=== PATIENT | female | born 1940 | race Caucasian/White ===

== ENCOUNTER → 2023-06-14 13:17 | Outpatient (REF) | payer MEDICARE, SELFPAY ==
[2023-06-14 14:47] LABS: Urine Albumin 2+ (Neg - Trace); Urine Bilirubin Negative (Negative); Urine Character Very Cloudy (Clear); Urine Color Yellow; Urine Glucose Negative (Negative); Urine Ketone Negative (Negative); Urine Leukocyte 2+ (Negative); Urine Nitrite Negative (Negative); Urine Occult Blood 2+ (Negative); Urine Specific Gravity 1.015 (<1.030); Urine Urobilinogen Negative (Neg - 1+)
[2023-06-14 15:10] LABS: Urine Bacteria Many (Negative)
== END ==
LOC: OLABPG 13:17
PROVIDERS: ATTENDING PHYSICIAN Student in an Organized Health Care Education/Training Program
DX: N39.0 Urinary tract infection, site not specified (principal)
CPT/HCPCS: 81003; 81015; 87077; 87086; 87186

== ENCOUNTER → 2023-08-29 11:40 | Outpatient (REF) | payer MEDICARE, SELFPAY ==
[2023-08-29 15:20] LABS: Urine Albumin Trace (Neg - Trace); Urine Bilirubin Negative (Negative); Urine Character Clear (Clear); Urine Color Yellow; Urine Glucose Negative (Negative); Urine Ketone Negative (Negative); Urine Leukocyte 2+ (Negative); Urine Nitrite Positive (Negative); Urine Occult Blood Negative (Negative); Urine Urobilinogen Negative (Neg - 1+)
[2023-08-29 15:35] LABS: Urine Squamous Cell 0-2 /LPF (Few)
[2023-08-29 15:36] LABS: Urine Bacteria Many (Negative); Urine Red Blood Cell None Seen /HPF (0-2); Urine White Cell >100 /HPF (0-5); Urine White Cell Cast 0-2 /LPF
== END ==
LOC: OLABPG 11:40
PROVIDERS: ATTENDING PHYSICIAN Family Medicine
DX: F03.90 Unspecified dementia, unspecified severity, without behavioral disturbance, psychotic disturbance, mood disturbance, and anxiety (principal)
CPT/HCPCS: 81003; 81015; 87077; 87086; 87186

== ENCOUNTER → 2024-08-26 09:03 | Outpatient (REF) | payer MEDICARE, SELFPAY ==
[2024-08-26 10:25] LABS: % Basophils 0.6 % (0-2); % Eosinophils 3.5 % (0-6); % Immature Granulocytes 0.2 % (0-0.5); % Lymphocytes 41.8 % (20.5-51.1); % Monocytes 9.6 % (1.7-9.3); % Neutrophils 44.3 % (42.2-75.2); Absolute Basophils 0.1 10^3/uL (0-0.2); Absolute Eosinophils 0.4 10^3/uL (0-0.7); Absolute Lymphocytes 4.2 10^3/uL (1.2-3.4); Absolute Neutrophils 4.5 10^3/uL (1.4-6.5); Hematocrit 41.7 % (37.0-47.0); Hemoglobin 14.8 g/dL (12.0-16.0); Mean Corp Hgb Conc. 35.5 g/dL (33.0-37.0); Mean Corpuscular Volume 93.1 fL (81.0-99.0); Nucleated Red Blood Cells % 0 %; Platelet Count 243 10^3/uL (130-400); Red Blood Cell Count 4.48 10^6/uL (4.20-5.40); Red Cell Dist. Width 13.1 % (11.5-14.5); White Blood Cell Count 10.1 10^3/uL (4.8-10.8)
[2024-08-26 10:26] LABS: ALT (SGPT) 20 U/L (0-35); AST (SGOT) 22 U/L (14-36); Albumin 4.3 g/dl (3.5-5.0); Alkaline Phosphatase 72 U/L (38-126); Blood Urea Nitrogen 19 mg/dl (7-17); Calcium 9.7 mg/dl (8.4-10.2); Carbon Dioxide 26 mmol/L (22-30); Chloride 104 mmol/L (98-107); Glucose 120 mg/dl (70-99); HDL Cholesterol 45 mg/dl; LDL Cholesterol, Calculated 113 mg/dl; Potassium 4.5 mmol/L (3.5-5.1); Sodium 142 mmol/L (135-145); Total Bilirubin 1.1 mg/dl (0.2-1.3); Total Cholesterol 181 mg/dl (50-199); Total Protein 7.3 g/dl (6.3-8.2); Triglyceride 119 mg/dl (10-149); Very Low Density Lipoprotein 23 mg/dl (0-30); eGFR > 60.00
[2024-08-26 13:06] LABS: Vitamin D, 25-OH*** 27.1 ng/mL (30-80)
[2024-08-26 13:16] LABS: TSH Reflex To Free T4 1.63 uIU/ml (0.47-4.68)
[2024-08-26 13:56] LABS: Folate 6.6 ng/ml (2.76-20); Vitamin B12 951 pg/ml (239-931)
== END ==
LOC: OLABPG 09:03
PROVIDERS: ATTENDING PHYSICIAN Nurse Practitioner Gerontology
DX: D64.9 Anemia, unspecified (principal); D51.9 Vitamin B12 deficiency anemia, unspecified; F03.90 Unspecified dementia, unspecified severity, without behavioral disturbance, psychotic disturbance, mood disturbance, and anxiety; R53.1 Weakness
CPT/HCPCS: 36415; 80053; 80061; 82306; 82607; 82746; 84443; 85025

== ENCOUNTER 2024-10-13 00:55 | Inpatient (IN) | payer MEDICARE, SELFPAY ==
[2024-10-12 22:30] VITALS: BP 164/52
[2024-10-12 22:32] VITALS: BP 164/52
[2024-10-12 22:36] VITALS: BMI 30.8
[2024-10-12 23:01] VITALS: BP 132/59
--- NOTE | 2024-10-12 23:01 | ED.GENMED ---
History of Present Illness
General
Chief Complaint: Chest Pain
Source: patient, family, ambulance crew and assisted
Exam Limitations: dementia
Time Seen by Provider: 10/12/24 22:47
Nursing documentation reviewed up to this point in time: agreed with
History of Present Illness
History of Present Illness:
Pleasantly demented 84-year-old female presents to the emergency department from the [facility] with possible chest pain. She states that the chest pain began weeks ago, the report from the assisted to the son states that the
chest pain began today. Patient's son states that he visited with her several days ago and there was no complaint of chest pain. Upon arrival, patient states that she had chest pain that did not radiate. Patient is not on any blood thinners.
Patient does have a history of coronary artery disease with an RCA stent. She does have frequent UTIs. She suffers from hypertension and hyperlipidemia.
Past History
Past History
ED Past Medical History: CAD, Other (Chronic back pain) and Other (djd)
ED Past Surgical History: Cardiac and Orthopedic
Social History
Tobacco: Non-smoker
Alcohol: None
Personal:
Living: alone
Review of Systems
Review of Systems
Allergies reviewed?: Yes
Unable to obtain full review of systems at this time due to: dementia
Other source history: family
All Other Systems: ROS reviewed and negative except as documented in HPI and ROS
Constitutional: Reports no symptoms
EENT: Reports no symptoms
Respiratory: Reports no symptoms
Cardiac: Reports chest pain
ABD/GI: Reports no symptoms
: Reports no symptoms
Musculoskeletal: Reports no symptoms
Skin: Reports no symptoms
Neurological: Reports no symptoms
Endocrine: Reports no symptoms
Hematologic/Lymphatic: Reports no symptoms
Psychiatric: Reports anxiety
Phy Exam
General Physical Exam
General Presentation: well appearing and no apparent distress
General age: appears stated age
General Skin: warm
General Mental: alert and usual mental status
General Hydration: appears well hydrated
Cardiovascular Exam
Cardiovascular Exam: regular rate/rhythm, no edema and no murmur
Neurological Exam
Neurological Exam: alert and confused (Baseline medical status)
Musculoskeletal Exam
Musculoskeletal Exam: full ROM, no edema and neuro vasc intact
Skin Exam
Skin Exam: normal color and warm/dry
Scores
Heart Score for Chest Pain Patients
STEMI patient?: No
History: Slightly or Non-Suspicious
ECG: Nonspecific Repolarization
Age: >/= 65 years
Risk Factors: >/= 3 Risk Factors or History of CAD
Troponin: >/= 3 x Normal Limit
Heart Score for Chest Pain Patients: 7
Heart Score Risk: 72.7 % MACE over next 6 weeks
Course
Orders/Labs/Results
Orders:
Orders
10/12/24 22:29
Electrocardiogram (*1) Urgent
Reason for Study: Chest Pain
Cardiac Monitoring- Treatment ONCE
EKG- Treatment ONCE
IV Insert/Care/Rem.- Treatment PRN
O2 Therapy [RESP] Urgent
Titrate/Wean O2 to maintain O2 sat greater than (%): 90
Special Instructions: Maintain sats >/=90%
Pulse Ox/spot Check [RESP] Urgent
Quantity: 1
Special Instructions: ON ROOM AIR
10/12/24 22:55
Complete Blood Count/With Diff Urgent
Comprehensive Metabolic Panel Urgent
Troponin I Urgent
Abnormal Lab Results
10/12/24
22:55
MCH 32.8 H pg
(27.0-31.0)
MPV 10.6 H fL
(7.4-10.4)
Absolute Monos (auto) 1.0 H 10^3/uL
(0.1-0.6)
Monocytes % 9.6 H %
(1.7-9.3)
Carbon Dioxide 31 H mmol/L
(22-30)
BUN 19 H mg/dl
(7-17)
Glucose 176 H mg/dl
(70-99)
Troponin I 0.486 H* ng/ml
10/12/24 22:55
10/12/24 22:55
Vital Signs
Initial and Last Documented VS:
Initial Vital Signs
Temp Pulse Resp BP Pulse Ox
98.5 F 77 21 164/52 97
10/12/24 22:30 10/12/24 22:30 10/12/24 22:30 10/12/24 22:30 10/12/24 22:30
Last Documented Vital Signs
Temp Pulse Resp BP Pulse Ox
98.5 F 74 17 164/52 98
10/12/24 22:30 10/12/24 22:32 10/12/24 22:32 10/12/24 22:32 10/12/24 23:00
*EKG
Interpreted by ED Provider?: Yes
Heart Rate: 78
Rate: normal
Rhythm: sinus
Oxford: left axis deviation
Interval: normal interval
QRS Pattern: right bundle branch block
Ischemia: non-specific ST changes
*Wire Twister Interpretation
Rate: normal
Interpretation: normal
Heart Rate: 82
*Critical Care Note
Total Time (30-74mins, 75-104mins- exclusive of procedures): 35 (Critical care statement: A total of 35 minutes of critical care time was provided for this patient. This time is separate from time utilized to perform the aforementioned documented
procedures. Aggregate critical care time includes only time during which I was engaged in work directl)
Update Note
Update Note:
Spoke with son Andre who is aware of the elevated troponin. Patient is a DNR which he confirmed.
ED Attending Note
-
Portions of this chart may have been created with voice recognition software.� Occasional wrong word or��sound alike� substitutions may have occurred due to the inherent limitations of voice recognition software.
Discharge Plan
Departure
Patient Disposition: Admit
Date of Disposition: 10/13/24
Time of Disposition: 00:04
Admit to: IVU
Presentation/result/management discussed w/ accepting MD/DO: Hospitalist
Patient with high blood pressure during this ER visit?: Yes
Condition: Fair
Discharge Problem:
Non-ST elevation (NSTEMI) myocardial infarction, DNR (do not resuscitate)
Prescriptions:
No Action
carvedilol 3.125 MG tablet
3.125 mg PO BID Qty: 60 3RF
lisinopril 5 MG tablet
5 mg PO DAILY Qty: 90 3RF
cefuroxime axetil 500 MG tablet
500 mg PO BID Qty: 14 0RF
Referrals:
Bel Diaz CRNP [Family Provider] -
Interventions
Interventions:
*Risk Screen - Suicide Last Done: 10/12/24 22:44
*General Assessment Last Done: 10/12/24 22:44
*Neglect/Abuse Screening Last Done: 10/12/24 22:50
*ED- Fall Risk Assessment Last Done: 10/12/24 22:44
*ED COVID-19 Vaccine History Last Done: 10/12/24 22:44
ED- Cardiac Assessment Last Done: 10/12/24 22:44
Discharge Date and Time
Print Language: BELARUSIAN
[2024-10-12 23:04] LABS: % Basophils 0.5 % (0-2); % Eosinophils 2.5 % (0-6); % Immature Granulocytes 0.4 % (0-0.5); % Lymphocytes 28.5 % (20.5-51.1); % Monocytes 9.6 % (1.7-9.3); % Neutrophils 58.5 % (42.2-75.2); Absolute Basophils 0.1 10^3/uL (0-0.2); Absolute Eosinophils 0.3 10^3/uL (0-0.7); Absolute Lymphocytes 2.9 10^3/uL (1.2-3.4); Hematocrit 40.6 % (37.0-47.0); Hemoglobin 14.5 g/dL (12.0-16.0); Mean Corp Hgb Conc. 35.7 g/dL (33.0-37.0); Mean Corpuscular Hgb 32.8 pg (27.0-31.0); Mean Corpuscular Volume 91.9 fL (81.0-99.0); Mean Platelet Volume 10.6 fL (7.4-10.4); Nucleated Red Blood Cells % 0 %; Platelet Count 210 10^3/uL (130-400); Red Blood Cell Count 4.42 10^6/uL (4.20-5.40); Red Cell Dist. Width 12.9 % (11.5-14.5); White Blood Cell Count 10.2 10^3/uL (4.8-10.8)
[2024-10-12 23:17] LABS: ALT (SGPT) 18 U/L (0-35); AST (SGOT) 19 U/L (14-36); Albumin 4.5 g/dl (3.5-5.0); Alkaline Phosphatase 79 U/L (38-126); Blood Urea Nitrogen 19 mg/dl (7-17); Calcium 9.6 mg/dl (8.4-10.2); Carbon Dioxide 31 mmol/L (22-30); Chloride 102 mmol/L (98-107); Estimated Creatinine Clearance 64 ml/min; Glucose 176 mg/dl (70-99); Sodium 140 mmol/L (135-145); Total Bilirubin 0.7 mg/dl (0.2-1.3); Total Protein 7.6 g/dl (6.3-8.2); eGFR > 60.00
[2024-10-13] VITALS (8 sets, daily range): BP systolic 133–158; BP diastolic 60–84; BMI 31.2
[2024-10-13] LABS: Troponin I 0.486 ng/ml
--- NOTE | 2024-10-13 00:21 | HPS.HSE ---
Family Physician
-
Family Physician: LESLYE Eid
Chief Complaint
-
Chest pain
History of Present Illness
This is a 84-year-old female with past medical history of CAD status post stenting with PCI to the RCA, advanced dementia currently living at the [facility] who presents to the emergency department with acute onset of chest pain.
Patient is a poor historian. By the time I visited she says she is not having any chest pain. At the [facility] called the patient's son about 30 minutes prior to arrival in the emergency department to indicate that she was having chest pain
and she will be transferred to the ED. She cannot describe the extent of her pain, it is radiation or any associated symptoms such as shortness of breath palpitations diaphoresis nausea or vomiting. She is currently in no distress and denies any
complaints.
In the emergency department she was afebrile, blood pressure was 160/52 with a pulse of 74 satting 95% on room air.
ECG shows normal sinus rhythm and no acute ischemic changes. Troponin was elevated at 0.48. CBC was unremarkable stop electrolytes BUN/creatinine were in the normal range.
Medical History
Past Medical History
Past Medical History: Reports Other
Additional Past Medical History:
CAD status post NSTEMI with PCI to the RCA,
Hypertension
Hyperlipidemia
Anxiety
Dementia
Past Surgical History: Reports Other
Additional Past Surgical History:
Breast biopsy
Tonsillectomy
Left hip replacement
Total abdominal hysterectomy and bilateral salpingo-oophorectomy
Social History
Tobacco: Non-smoker
Alcohol: None
Drug: None
Employment: Retired
Family History
Family History: Not pertinent
Allergies / Home Medications
Allergies reflects when Allergies were last updated in [facility].
Home Medications with original date entered in [facility]
Allergy/Medication List:
Allergies
Allergy/AdvReac Type Severity Reaction Status Date / Time
No Known Allergies Allergy Verified 10/12/24 22:57
Home Medications
carvedilol 3.125 mg tablet 3.125 mg PO BID ##60 02/15/16
lisinopril 5 mg tablet 5 mg PO DAILY ##90 02/15/16
cefuroxime axetil 500 mg tablet 500 mg PO BID #14 tabs 04/04/21
Review of Systems
-
Unable to obtain full review of systems at this time due to: Dementia
Physical Exam
Vital Signs
Vital Signs
Temp Pulse Resp BP Pulse Ox
98.5 F 74 17 164/52 98
10/12/24 22:30 10/12/24 22:32 10/12/24 22:32 10/12/24 22:32 10/12/24 23:00
Physical Exam
General: Well Developed, Well Nourished and No Apparent Distress
HEENT: NormoCephalic, Moist mucous membranes and Atraumatic
Respiratory: Clear
Cardiac: S1/S2 and Regular Rhythm; No Murmur or Rub
GI: Soft, Non Tender, Non Distended and Normal Bowel Sounds; No Organomegaly
Rectal: Deferred by Provider
Musculoskeletal: No Clubbing, No Cyanosis and No Edema
Skin: No Rash
Neuro: Nonfocal/grossly intact
Laboratory Results
-
10/12/24 22:55
10/12/24 22:55
Laboratory Results
Total Bilirubin 0.7 mg/dl (0.2-1.3) 10/12/24 22:55
AST 19 U/L (14-36) 10/12/24 22:55
ALT 18 U/L (0-35) 10/12/24 22:55
Alkaline Phosphatase 79 U/L (38-126) 10/12/24 22:55
Troponin I 0.486 ng/ml H* 10/12/24 22:55
Data Reviewed
-
Medical Tests (Nuc Med, Echo, EKG etc): Image Personally Visualized and interpreted
Lab Data: Labs Reviewed by me
Old Records: Reviewed
Impression/Plan
-
IMPRESSION:
Atrial female with dementia and history of coronary disease status post prior stenting presents to the emergency department with episode of chest pain now resolved. She is currently chest pain-free. Found to have no ischemia on ECG but elevated
troponin to 0.48 consistent with an NSTEMI. Labs are otherwise stable. Patient in no acute distress.
PLAN:
NSTEMI -troponin 0.48, currently chest pain-free
-Admit to telemetry
-Aspirin 324 x 1
-Heparin drip
-Nitroglycerin as needed chest pain
-Antiemetics
-Patient is hemodynamically stable and not on a beta-lisa currently, will monitor for now
-Continue amlodipine and Dyazide
-Check lipid panel in the morning
-Echo
-N.p.o. after midnight, cardiology consult
DVT prophylaxis�on heparin drip
CODE STATUS�DNR
[2024-10-13] MEDS: HEPARIN 4000 UNITS IV (00:27)
[2024-10-13] MEDS: HEPARIN 25000 UNITS/250 ML IV (00:33)
[2024-10-13] MEDS: FLUSH (NSS) 1 FLUSH IV (00:39)
[2024-10-13] MEDS: LOW STRENGTH ASPIRIN 324 MG PO (00:42)
[2024-10-13 01:05] LABS: APTT 28.7 Sec (23.4-35.0)
[2024-10-13 02:40] LABS: Troponin I 0.595 ng/ml
[2024-10-13 07:39] LABS: APTT 72.5 Sec (23.4-35.0)
[2024-10-13 07:50] LABS: Troponin I 0.559 ng/ml
[2024-10-13 08:01] LABS: Blood Urea Nitrogen 16 mg/dl (7-17); Calcium 9.3 mg/dl (8.4-10.2); Carbon Dioxide 28 mmol/L (22-30); Chloride 107 mmol/L (98-107); Estimated Creatinine Clearance 72 ml/min; Glucose 135 mg/dl (70-99); HDL Cholesterol 42 mg/dl; LDL Cholesterol, Calculated 78 mg/dl; Potassium 4.1 mmol/L (3.5-5.1); Sodium 142 mmol/L (135-145); Total Cholesterol 146 mg/dl (50-199); Triglyceride 133 mg/dl (10-149); Very Low Density Lipoprotein 26 mg/dl (0-30); eGFR > 60.00
[2024-10-13] MEDS: NORVASC 5 MG PO (08:06)
[2024-10-13] MEDS: ORETIC 25 MG PO (08:06)
[2024-10-13] MEDS: RISPERDAL 0.5 MG PO ×2 (08:06→21:02)
--- NOTE | 2024-10-13 08:21 | W.PN.HOSP.TC ---
Today's Communication/Plan
-
Continue with heparin drip
Continue with aspirin and statin
Consider beta-lisa and ACEi depending on hemodynamics
Monitor on telemetry
No plan for [facility]
Assessment / Plan
Assessment / Plan
#NSTEMI
#CAD s/p PCI to RCA
#Dyslipidemia
-Presented with chest pain that resolved prior to admission; troponin peak near 6.3 with anterolateral T wave flattening and ST depression
-Does have high pretest probability due to previous obstructive CAD requiring RCA stent; A1c 5.9%, LDL 76
-Chest pain resolved shortly after arrival; was started on moderate intensity statin and heparin drip
-Discussed with cardiology, no plans for [facility], will continue with medical management
-Has remained hemodynamically stable and on room air
Plan
-Continue with moderate intensity statin and LDL goal <70
-Continue with heparin drip and daily baby aspirin
-Consider beta-lisa if heart rate >90
-Repeat ECG and troponin for new anginal equivalent
-Check echocardiogram
-Monitor on telemetry
#Primary hypertension
-Home regimen includes amlodipine and hydrochlorothiazide
-No known history of hypertensive systemic disease
-Most recent BP 141/72 mmHg
-Consider ACEi if BP worsens
#Dementia
-Likely Alzheimer's
-Not currently on medication
-Severe per history, and on exam
Diet: Low-cholesterol
DVT prophylaxis: Heparin
CODE STATUS: DNR
Anticipated Discharge: 24 - 48 hours
Subjective/Interval History
-
Date of Service: October 13, 2024
Seen and examined at bedside. No acute events reported overnight. AFVSS, no events on telemetry
Troponin peaked at 0.63 then down trended. Patient remains without chest pain or anginal equivalents this morning
Denies new complaints though ROS limited by dementia
Objective Data
-
Labs:
Laboratory Results
10/12/24 10/13/24 10/13/24
22:55 00:17 07:07
WBC 10.2
Hgb 14.5
Hct 40.6
Plt Count 210
APTT 28.7 72.5 H
Sodium 140 142
Potassium 4.0 4.1
Chloride 102 107
Carbon Dioxide 31 H 28
BUN 19 H 16
Creatinine 0.7 0.6
Glucose 176 H 135 H
Calcium 9.6 9.3
Total Bilirubin 0.7
AST 19
ALT 18
Alkaline Phosphatase 79
10/13/24
13:50
WBC
Hgb
Hct
Plt Count
APTT Pending
Sodium
Potassium
Chloride
Carbon Dioxide
BUN
Creatinine
Glucose
Calcium
Total Bilirubin
AST
ALT
Alkaline Phosphatase
Vital Signs:
Vital Signs
Temp Pulse Resp BP Pulse Ox
98 F 66 18 158/83 98
10/13/24 07:56 10/13/24 08:06 10/13/24 07:56 10/13/24 08:06 10/13/24 07:56
I&O
10/12/24 10/13/24 10/14/24
06:59 06:59 06:59
Intake Total 40 / 40
Balance 40 / 40
Review of Systems
-
Unable to obtain full review of systems at this time due to: Dementia
Physical Exam
-
General: Well Developed, No Apparent Distress, Comfortable and Obese
HEENT: Normocephalic, Atraumatic, Moist Mucous Membranes and Anicteric
Respiratory: Clear to Auscultation and Non Labored Respirations; Negative Accessory Resp Muscle Use
Cardiac: Regular Rhythm and S1/S2; Negative Murmur, Rub, JVD or Gallop
GI: Soft, Nontender, Nondistended and Normal Bowel Sounds
Musculoskeletal: No Clubbing, No Cyanosis and No Edema
Skin: Warm, Dry and Normal Turgor; Negative Rash
Neuro: AO x 3, Nonfocal/Grossly Intact and Central Nerve's Intact
Psych: Calm
Data Reviewed
-
Labs: Labs Reviewed by me, Discussed with Physician (Missionary Coordinator) and Discussed with Patient
--- NOTE | 2024-10-13 09:02 | CON.CAR ---
Addendum entered and electronically signed by George Olson MD 10/13/24 19:17:
I called and spoke with son, following up on WE's call
Addendum entered and electronically signed by George Olson MD 10/13/24 19:12:
84-year-old woman sent from [facility] [place] yesterday with chest discomfort and found to have troponin of 0.63.
PMH: CAD with non-ST segment elevation MA, 3 mm resolute stent to mid RCA in 2016, dementia, hyperlipidemia, hypertension
PSH: Hysterectomy with BSO and tonsillectomy
SH: Former smoker no alcohol, lives in [facility]
Family history: Noncontributory
Rest of history as below
Pleasant, confused, 141/72, pulse 71, respiratory rate 18, weight is 79.9 kg, head neck exam unremarkable, lungs are clear, soft systolic murmur, JVD okay, regular rate and rhythm, abdomen benign, trace edema,
ECG: Sinus rhythm, right bundle branch block, prior inferior myocardial infarction
Hemoglobin 14.5, BUN and creatinine are 16 and 0.6, potassium is 4.1, peak troponin is 0.630, total cholesterol is 146 with an LDL of 78
Impression:
Admitted with chest pain and elevated troponin 10/12/2024
NSTEMI, peak troponin 0.63
CAD
NSTEMI and 3 mm resolute KELVIN to the mid RCA 02/12/2016HTN
Plan:
She presents with a non-ST segment elevation MA. Given her current asymptomatic status along with her comorbidities, best option is conservative management with optimization of GDMT. Aspirin has been reinitiated. Clopidogrel has been added.
Carvedilol has been restarted.Would stop heparin, continue atorvastatin, and consider SARITA inhibitor if needed.
Recent echocardiogram was satisfactory.
We will continue to follow.
Original Note:
Consultation
Consultation Request
Date/Time Consultation Requested: 10/13/2024 ay 0159
Date/Time Consultation Performed: 10/13/2024 at 0930
Requesting Provider: Dr. Caceres
Performing Provider: Dr. JU Olson
Reason for Consultation: Chest pain, elevated Troponin
Medical History
-
History of Present Illness:
Patient was sent from the memory care unit at [facility] yesterday to the ER with complaints of chest pain and was admitted with elevated troponin and cardiology has been consulted for possible NSTEMI. Patient lives at the memory care unit at [facility] and has dementia, she does not remember having any chest pain yesterday and has no idea why she is here in the hospital. I did call the patient's son and we talked by phone for 10 minutes and 31 seconds. Patient's son got a call from nursing
at the [facility] care unit yesterday that the patient was complaining of chest pain and he met the patient in the ER. In the ER the patient was complaining of chest pain that was mostly left-sided, but she is pain-free now. Patient was given aspirin
and was started on heparin gtt. I reviewed the patient's med list with her son and also by looking in her [facility] records, it does not look like she was taking aspirin. The patient's son cannot remember why aspirin may have been stopped and does not
recall any interactions. There are no allergies listed in her [facility] or [employer] records. Patient also with history of HTN was previously on Coreg and lisinopril, but they have both been stopped the most recently her regimen is amlodipine and HCTZ.
Patient also no longer taking statin for unclear reasons.
PMH:
CAD
NSTEMI and 3 mm resolute KELVIN to the mid RCA 02/12/2016
HTN
Past Medical History
Past Medical History: Other (in HPI)
Past Surgical History: Cardiac (RCA PCI 2015), Gynecological (hysterectomy, BSO) and Tonsilectomy
Social History
Tobacco: Former Smoker
Alcohol: None
Drug: None
Living: Other (memory care unit at [facility])
Family History
Family History: CAD and Diabetes
Allergies / Home Medications
Allergy/AdvReac Type Severity Reaction Status Date / Time
No Known Allergies Allergy Verified 10/12/24 22:57
�Medication �Instructions �Recorded �Confirmed �Type
carvedilol 3.125 mg tablet 3.125 mg PO BID ##60 02/15/16 04/04/21 Rx
lisinopril 5 mg tablet 5 mg PO DAILY ##90 02/15/16 04/04/21 Rx
cefuroxime axetil 500 mg tablet 500 mg PO BID #14 tabs 04/04/21 Rx
The above medication list is wrong, I have reconciled medications with the patient's son by phone:
Amlodipine 5 mg daily, HCTZ 25 mg daily, hydroxyzine 5 mg twice daily and at bedtime, Remeron 30 mg at bedtime, Risperdal 0.25 mg twice daily
Review of Systems
-
History Source: Patient and Family (Son)
All other systems: Negative unless noted
Physical Exam
Vital Signs
Temp Pulse Resp BP Pulse Ox
98 F 66 18 158/83 98
10/13/24 07:56 10/13/24 08:06 10/13/24 07:56 10/13/24 08:06 10/13/24 07:56
GEN: NAD. ORANTES to self, does not know why she is in the hospital
HEENT: EOMI
LUNGS: RA. CTA B/L, no wheeze
CV: SR on tele. Reg, S1/S2, no murmur
ABD: soft, BS+, NT, ND
EXT: No clubbing, cyanosis, lesions or edema B/L
NEURO: Gross non-focal
SKIN: Warm, dry and pink. No rash
Lab Results
10/12/24 22:55
10/13/24 07:07
Troponin I 0.559 ng/ml H* 10/13/24 07:07
Impression / Plan
-
PCP: Dr. Pitts
Card: [facility] cardiology, [facility]
Impression:
Admitted with chest pain and elevated troponin 10/12/2024
NSTEMI, peak troponin 0.63
CAD
NSTEMI and 3 mm resolute KELVIN to the mid RCA 02/12/2016
HTN
Echo 10/05/2024: EF 55 to 60%, normal RV size and function, trace MR, mild to moderate aortic regurgitation, no pericardial effusion
Plan:
-Patient was sent from the memory care unit at [facility] yesterday to the ER with complaints of chest pain and was admitted with elevated troponin and cardiology has been consulted for possible NSTEMI. Patient lives at the memory care unit at [place]
[facility] and has dementia, she does not remember having any chest pain yesterday and has no idea why she is here in the hospital. I did call the patient's son and we talked by phone for 10 minutes and 31 seconds. Patient's son got a call from nursing
at the memory care unit yesterday that the patient was complaining of chest pain and he met the patient in the ER. In the ER the patient was complaining of chest pain that was mostly left-sided, but she is pain-free now. Patient was given aspirin
and was started on heparin gtt. I reviewed the patient's med list with her son and also by looking in her [facility] records, it does not look like she was taking aspirin. The patient's son cannot remember why aspirin may have been stopped and does not
recall any interactions. There are no allergies listed in her [facility] or [employer] records. Patient also with history of HTN was previously on Coreg and lisinopril, but they have both been stopped the most recently her regimen is amlodipine and HCTZ.
Patient also no longer taking statin for unclear reasons.
-ECG reviewed by me is SR with RBBB
-Peak troponin 0.63 in the setting of chest pain, but no ECG changes and no WMA by echo. Will manage as possible NSTEMI. Heparin drip until tomorrow.
-Start Plavix 75 mg daily today, orders placed by me
-Patient was not taking an aspirin a day prior to admission for unclear reasons, she was aspirin loaded in the ER yesterday and I have ordered aspirin 81 mg daily starting today, orders placed by me.
-Patient previously tolerated Coreg and will start Coreg 3.125 mg BID today, orders placed by me
-Outpatient dose of amlodipine 5 mg daily has been continued.
Outpatient dose of HCTZ 25 mg daily has been continued there is no obvious contraindication so we will continue for now
-LDL 78, will start atorvastatin 40 mg daily. Patient previously tolerated atorvastatin 80 mg daily.
-EF preserved by echo noted above
-Talked with patient's son by phone for 10 minutes 31 seconds today and we reviewed the admission thus far. We talked about management options for the suspected NSTEMI. Patient is DNR lives in the dementia unit at [facility]. We agreed to proceed
with medical therapy.
-Patient is not a candidate for cardiac rehab given dementia.
[2024-10-13 09:08] LABS: Glycohemoglobin (HgbA1c) 5.9 % (4.0-5.6)
[2024-10-13] MEDS: LOW STRENGTH ASPIRIN 81 MG PO (10:02)
--- NOTE | 2024-10-13 15:55 | DOWNTIME ---
There was a [employer] Set Up Operator Downtime on 10/13/2024 from 1230 to 10/13/2024 at 1550. Downtime documentation of patient's care, including medication administrations, has been reconciled in the electronic record per guidelines. Refer to the
patient's paper chart under the miscellaneous tab to see printed paper medication records and downtime forms.
[2024-10-13 17:14] LABS: APTT 81.2 Sec (23.4-35.0)
[2024-10-13] MEDS: LIPITOR 40 MG PO (17:31)
[2024-10-13] MEDS: PLAVIX 75 MG PO (17:31)
--- NOTE | 2024-10-13 17:35 | CM ---
Met with patient to obtain information for assessment. Patient stated that she lives with her spouse in a two story home with two steps. Her spouse provides assistance with all of her ADLs, personal care, bathing, dressing and caddy/caddie supervisor,
cooking, cleaning and laundry. She has a walker. She has not had VN and did not have SNF.
Patient has a prescription plan and uses, [facility] for all of her medications.
Her PCP is, Bel Diaz.
Plan: Case management will continue to follow and assist with discharge planning. Will watch for needs.
[2024-10-13] MEDS: COREG 3.125 MG PO (21:02)
[2024-10-13] MEDS: REMERON 45 MG PO (21:02)
[2024-10-14 03:55] VITALS: BP 137/58
[2024-10-14 07:08] LABS: % Basophils 0.8 % (0-2); % Immature Granulocytes 0.4 % (0-0.5); % Lymphocytes 28.5 % (20.5-51.1); % Monocytes 10.9 % (1.7-9.3); % Neutrophils 56.4 % (42.2-75.2); Absolute Basophils 0.1 10^3/uL (0-0.2); Absolute Eosinophils 0.2 10^3/uL (0-0.7); Absolute Lymphocytes 2.2 10^3/uL (1.2-3.4); Absolute Monocytes 0.9 10^3/uL (0.1-0.6); Absolute Neutrophils 4.4 10^3/uL (1.4-6.5); Hematocrit 39.5 % (37.0-47.0); Hemoglobin 14.4 g/dL (12.0-16.0); Mean Corp Hgb Conc. 36.5 g/dL (33.0-37.0); Mean Corpuscular Volume 90.4 fL (81.0-99.0); Mean Platelet Volume 10.9 fL (7.4-10.4); Nucleated Red Blood Cells % 0 %; Platelet Count 209 10^3/uL (130-400); Red Blood Cell Count 4.37 10^6/uL (4.20-5.40); Red Cell Dist. Width 12.5 % (11.5-14.5); White Blood Cell Count 7.9 10^3/uL (4.8-10.8)
[2024-10-14 07:29] LABS: Blood Urea Nitrogen 13 mg/dl (7-17); Calcium 9.3 mg/dl (8.4-10.2); Carbon Dioxide 27 mmol/L (22-30); Chloride 108 mmol/L (98-107); Estimated Creatinine Clearance 71 ml/min; Glucose 131 mg/dl (70-99); Potassium 4.4 mmol/L (3.5-5.1); Sodium 141 mmol/L (135-145); eGFR > 60.00
--- NOTE | 2024-10-14 08:01 | W.PN.HOSP.TC ---
Today's Communication/Plan
-
Continue with beta-lisa, DAPT, and statin
Continue on telemetry
Likely discharge tomorrow
Assessment / Plan
Assessment / Plan
#NSTEMI
#CAD s/p PCI to RCA
#Dyslipidemia
-Likely associated with discontinuation of her beta-lisa and home aspirin while at her living facility
-Presented with chest pain that resolved; troponin peak near 0.63 with anterolateral T wave flattening and ST depression
-Does have high pretest probability due to previous obstructive CAD requiring RCA stent; A1c 5.9%, LDL 76
-Chest pain resolved shortly after arrival; was started on moderate intensity statin and heparin drip
-Echocardiogram showed preserved biventricular function, no wall motion abnormality
-Discussed with cardiology, no plans for [facility], will continue with medical management
-Has remained hemodynamically stable and on room air; S/P heparin gtt
Plan
-Continue with moderate intensity statin and LDL goal <70
-Continue DAPT with aspirin and Plavix, likely for 1 year
-Continue with home beta-lisa; consider ACEi if BP elevated
-Repeat ECG and troponin for new anginal equivalent
-Monitor on telemetry
#Primary hypertension
-Home regimen includes amlodipine and hydrochlorothiazide
-No known history of hypertensive systemic disease
-Most recent BP 141/72 mmHg
-Consider ACEi if BP worsens
#Dementia
-Likely Alzheimer's
-Not currently on medication
-Severe per history, and on exam
Diet: Low-cholesterol
DVT prophylaxis: Heparin
CODE STATUS: DNR
Anticipated Discharge: Within 24 hours
Subjective/Interval History
-
Date of Service: October 14, 2024
Seen and examined at the bedside. No acute events reported overnight. AFVSS this morning on room air
Cardiology discussed case with her family yesterday and have elected for conservative treatment. Was noted to be taken off of aspirin and carvedilol by her living facility prior to this event.
Denies any new complaints this morning though ROS limited by dementia
Objective Data
-
Labs:
Laboratory Results
10/13/24 10/14/24
19:55 06:32
WBC 7.9
Hgb 14.4
Hct 39.5
Plt Count 209
APTT Cancelled
Sodium 141
Potassium 4.4
Chloride 108 H
Carbon Dioxide 27
BUN 13
Creatinine 0.6
Glucose 131 H
Calcium 9.3
Vital Signs:
Vital Signs
Temp Pulse Resp BP Pulse Ox
97.5 F 66 22 137/58 96
10/14/24 03:55 10/14/24 03:55 10/14/24 03:55 10/14/24 03:55 10/14/24 03:55
I&O
10/13/24 10/14/24 10/15/24
06:59 06:59 06:59
Intake Total 40 / 40 480 / 480
Balance 40 / 40 480 / 480
Review of Systems
-
Unable to obtain full review of systems at this time due to: Dementia
Physical Exam
-
General: Well Developed, No Apparent Distress, Comfortable and Obese
HEENT: Normocephalic, Atraumatic, Moist Mucous Membranes and Anicteric
Respiratory: Clear to Auscultation and Non Labored Respirations; Negative Accessory Resp Muscle Use
Cardiac: Regular Rhythm and S1/S2; Negative Murmur, Rub or Gallop
GI: Soft, Nontender, Nondistended and Normal Bowel Sounds
Musculoskeletal: No Clubbing, No Cyanosis and No Edema
Skin: Warm and Dry; Negative Rash
Neuro: Awake, Alert, Oriented, Nonfocal/Grossly Intact and Central Nerve's Intact
Psych: Calm
Data Reviewed
-
Labs: Labs Reviewed by me and Discussed with Physician (Senior Underwriting Assistant)
[2024-10-14] MEDS: COREG 3.125 MG PO (08:43)
[2024-10-14] MEDS: PLAVIX 75 MG PO (08:47)
[2024-10-14] MEDS: LOW STRENGTH ASPIRIN 81 MG PO (08:47)
[2024-10-14] MEDS: NORVASC 5 MG PO (08:48)
[2024-10-14] MEDS: ORETIC 25 MG PO (08:49)
[2024-10-14] MEDS: RISPERDAL 0.5 MG PO (08:50)
[2024-10-14 11:31] VITALS: BP 142/62
--- NOTE | 2024-10-14 11:56 | W.PN.CARDCBS ---
Addendum entered and electronically signed by George Olson MD 10/14/24 14:09:
84-year-old woman sent from [facility] [place] yesterday with chest discomfort and found to have troponin of 0.63.
She is comfortable, denies complaints no chest pain no shortness of breath
PMH: CAD with non-ST segment elevation IA, 3 mm resolute stent to mid RCA in 2016, dementia, hyperlipidemia, hypertension
PSH: Hysterectomy with BSO and tonsillectomy
SH: Former smoker no alcohol, lives in [facility]
Family history: Noncontributory
Meds: Hydrochlorothiazide 25 mg a day, amlodipine 5 mg a day, Remeron 45 mg at bedtime, Risperdal 0.5 mg daily and at bedtime, aspirin 81 mg a day, clopidogrel 75 mg a day, carvedilol 3.125 mg twice daily, atorvastatin 40 mg a day
137/58, pulse 66, respirate 20, afebrile, saturation is 96%, weight is 76.9 kg, if accurate down 2.9 kg, head neck exam unremarkable, lungs are clear, regular rate and rhythm no obvious murmurs, abdomen benign extremities without clubbing cyanosis
or edema, JVD okay
Hemoglobin 14.4, platelets 209, BUN/creatinine 13 and 0.6, potassium is 4.4
Impression:
See below -agree with findings, assessments and recommendations of Wen Turcios except as modified in my plan
Plan:
Overall doing well despite a non-ST segment elevation IA. No further chest pain.
Her medical regimen has been optimized, she is now on DAPT, heparin has been stopped, she is on a beta-lisa.
LV function is normal.
Continue current regimen, continue to observe.
Telemetry is unremarkable.
If she remains stable, okay for discharge later today or in a.m.
Original Note:
Today's Communication / Plan
-
Talked with patient's son outisde of room and agree with trying to get her back to her memory care unit today
Cardiology recs in note and outlined on d/c instructions by me, e-scribing cardiac meds as well
Impression / Plan
-
PCP: Dr. Pitts
Card: [facility] cardiology, Barry
Impression:
Admitted with chest pain and elevated troponin 10/12/2024
NSTEMI, peak troponin 0.63
CAD
s/p NSTEMI and 3 mm resolute KELVIN to the mid RCA 02/12/2016
HTN
Dementia
Hyperlipidemia
Echo 10/13/2024: EF 55 to 60%, normal RV size and function, trace MR, mild to moderate aortic regurgitation, no pericardial effusion
Plan:
-No recurrence of chest pain. Troponin peaked at 0.63, but no ECG changes and no WMA by echo. Patient managed as possible NSTEMI.
-Heparin gtt ran for 24 hours
-New to aspirin Plavix this admission. Recommend 6 months of Plavix. Patient should stay on aspirin lifelong with previous IA and RCA PCI in 2016.
-Patient's son is agreeable to outpatient cardiology f/u so long as patient is willing to come to the office, but she is largely agreeable to leaving her facility for appointments.
-New to Coreg 3.125 mg BID this admission
-New to atorvastatin 40 mg daily, LDL was 78 this admission
-Outpatient dose of amlodipine 5 mg daily has been continued.
-Outpatient dose of HCTZ 25 mg daily has been continued there is no obvious contraindication so we will continue for now
-EF preserved by echo noted above
-Patient is not a candidate for cardiac rehab given dementia.
-Talked with patient's son outside of patient's room 10/14/24 and he is hoping patient can be d/c'd to home today, she does better in her familiar memory care unit surroundings. TT communication with hospitalist attending who is in agreement. Will
work on cardiology portion of d/c instructions
HPI: Patient was sent from the memory care unit at [facility] yesterday to the ER with complaints of chest pain and was admitted with elevated troponin and cardiology has been consulted for possible NSTEMI. Patient lives at the memory care unit at
[facility] and has dementia, she does not remember having any chest pain yesterday and has no idea why she is here in the hospital. I did call the patient's son and we talked by phone for 10 minutes and 31 seconds. Patient's son got a call from
nursing at the memory care unit yesterday that the patient was complaining of chest pain and he met the patient in the ER. In the ER the patient was complaining of chest pain that was mostly left-sided, but she is pain-free now. Patient was given
aspirin and was started on heparin gtt. I reviewed the patient's med list with her son and also by looking in her [facility] records, it does not look like she was taking aspirin. The patient's son cannot remember why aspirin may have been stopped and
does not recall any interactions. There are no allergies listed in her [facility] or [employer] records. Patient also with history of HTN was previously on Coreg and lisinopril, but they have both been stopped the most recently her regimen is amlodipine
and HCTZ. Patient also no longer taking statin for unclear reasons.
Progress Note - Analyst Competitive Intelligence
Subjective
Date of Service: October 14, 2024
Denies chest pain
Objective
Labs:
10/14/24 06:32
10/14/24 06:32
Labs
Hgb 14.4 g/dL (12.0-16.0) 10/14/24 06:32
Hct 39.5 % (37.0-47.0) 10/14/24 06:32
Plt Count 209 10^3/uL (130-400) 10/14/24 06:32
APTT Cancelled 10/13/24 19:55
Sodium 141 mmol/L (135-145) 10/14/24 06:32
Potassium 4.4 mmol/L (3.5-5.1) 10/14/24 06:32
BUN 13 mg/dl (7-17) 10/14/24 06:32
Creatinine 0.6 mg/dL (0.6-1.0) 10/14/24 06:32
Glucose 131 mg/dl (70-99) H 10/14/24 06:32
Troponins
10/12/24 10/13/24 10/13/24
22:55 02:06 05:06
Troponin I 0.486 H* 0.595 H* 0.630 H*
10/13/24
07:07
Troponin I 0.559 H*
Vital Signs and I&O:
Vital Signs
Temp Pulse Resp BP Pulse Ox
98.1 F 66 12 142/62 96
10/14/24 11:31 10/14/24 11:31 10/14/24 11:31 10/14/24 11:31 10/14/24 03:55
Vital Signs
Temp Pulse Resp BP Pulse Ox
98.1 F 66 12 142/62 96
10/14/24 11:31 10/14/24 11:31 10/14/24 11:31 10/14/24 11:31 10/14/24 03:55
Intake & Output
10/12/24 10/13/24 10/14/24 10/15/24
06:59 06:59 06:59 06:59
Intake Total 40 / 40 480 / 480
Balance 40 / 40 480 / 480
Physical Exam
Physical Exam
GEN: NAD. AAO to self
LUNGS: RA.
CV: SR on tele.
EXT: No edema B/L
NEURO: Gross non-focal
SKIN: No rash
--- NOTE | 2024-10-14 14:37 | CM ---
Patient is a memory care resident at [facility]. Patient stable for d/c today
Spoke w/ nurse/Kev at [facility], unable to admit patient today due to staffing, requesting for d/c tomorrow morning
Updated hospitalist, agreeable
Updated son on d/c tomorrow instead of today. IMM verbally reviewed, copy on chart
Will need ambulance transport
Plan: Return to [facility] tomorrow
[2024-10-14 15:05] VITALS: BP 149/62
[2024-10-14] MEDS: LIPITOR 40 MG PO (18:06)
--- NOTE | 2024-10-14 20:55 | PTCARENOTE ---
Patient agitated at this time, yelling at nursing staff and tech. Patient refusing to allow us to obtain vital signs or administer medications. Patient confused aaox1. Covering provider Hoa Bravo is aware.
[2024-10-14] MEDS: HALDOL 1 MG IM (21:12)
[2024-10-14] MEDS: COREG PO (21:39)
[2024-10-14] MEDS: RISPERDAL PO (21:40)
[2024-10-14] MEDS: REMERON PO (21:40)
[2024-10-14 23:19] VITALS: BP 162/85
[2024-10-15 04:14] VITALS: BP 154/69
[2024-10-15 06:09] VITALS: BMI 30.3
[2024-10-15 06:37] LABS: Hematocrit 41.9 % (37.0-47.0); Hemoglobin 15.4 g/dL (12.0-16.0); Mean Corp Hgb Conc. 36.8 g/dL (33.0-37.0); Mean Corpuscular Hgb 33.1 pg (27.0-31.0); Mean Corpuscular Volume 90.1 fL (81.0-99.0); Mean Platelet Volume 10.6 fL (7.4-10.4); Platelet Count 231 10^3/uL (130-400); Red Blood Cell Count 4.65 10^6/uL (4.20-5.40); Red Cell Dist. Width 12.6 % (11.5-14.5); White Blood Cell Count 8.8 10^3/uL (4.8-10.8)
[2024-10-15 07:53] VITALS: BP 138/82
--- NOTE | 2024-10-15 08:29 | W.PN.HOSP.TC ---
Today's Communication/Plan
-
DAPT for 6 months
Continue statin and beta-lisa
Discharge
Assessment / Plan
Assessment / Plan
#NSTEMI
#CAD s/p PCI to RCA
#Dyslipidemia
-Likely associated with discontinuation of her beta-lisa and home aspirin while at her living facility
-Presented with chest pain that resolved; troponin peak near 0.63 with anterolateral T wave flattening and ST depression
-Does have high pretest probability due to previous obstructive CAD requiring RCA stent; A1c 5.9%, LDL 76
-Chest pain resolved shortly after arrival; was started on moderate intensity statin and heparin drip
-Echocardiogram showed preserved biventricular function, no wall motion abnormality
-Discussed with cardiology, no plans for [facility], will continue with medical management
-Has remained hemodynamically stable and on room air; S/P heparin gtt
Plan
-Continue with moderate intensity statin and LDL goal <70
-Continue DAPT with aspirin and Plavix for 6 months and then DC Plavix
-Continue with home beta-lisa; consider ACEi if BP elevated
-Repeat ECG and troponin for new anginal equivalent
-Monitor on telemetry
#Primary hypertension
-Home regimen includes amlodipine and hydrochlorothiazide
-No known history of hypertensive systemic disease
-Most recent BP 141/72 mmHg
-Consider ACEi if BP worsens
#Dementia
-Likely Alzheimer's
-Not currently on medication
-Severe per history, and on exam
Diet: Low-cholesterol
DVT prophylaxis: Heparin
CODE STATUS: DNR
Anticipated Discharge: Today
Subjective/Interval History
-
Date of Service: October 15, 2024
Seen and examined at the bedside. No acute events reported overnight. AFVSS this morning.
No events on telemetry. Patient tired but otherwise no complaints
Plan for discharge back to [facility]
Objective Data
-
Labs:
Laboratory Results
10/15/24
06:23
WBC 8.8
Hgb 15.4
Hct 41.9
Plt Count 231
Vital Signs:
Vital Signs
Temp Pulse Resp BP Pulse Ox
98.2 F 88 18 138/82 98
10/15/24 07:53 10/15/24 07:53 10/15/24 07:53 10/15/24 07:53 10/15/24 07:53
I&O
10/14/24 10/15/24 10/16/24
06:59 06:59 06:59
Intake Total 480 / 480
Balance 480 / 480
Review of Systems
-
Unable to obtain full review of systems at this time due to: Dementia
Physical Exam
-
General: Well Developed, No Apparent Distress and Obese
HEENT: Normocephalic, Atraumatic, Moist Mucous Membranes and Anicteric
Respiratory: Clear to Auscultation and Non Labored Respirations
Cardiac: Regular Rhythm and S1/S2; Negative Murmur, Rub or Gallop
GI: Soft, Nontender, Nondistended and Normal Bowel Sounds
Musculoskeletal: No Clubbing, No Cyanosis and No Edema
Skin: Warm and Dry; Negative Rash
Neuro: Awake, Alert, Oriented and Nonfocal/Grossly Intact
Psych: Calm
Data Reviewed
-
Labs: Labs Reviewed by me and Discussed with Patient
[2024-10-15] MEDS: COREG 3.125 MG PO (10:43)
[2024-10-15] MEDS: ORETIC 25 MG PO (10:43)
[2024-10-15] MEDS: PLAVIX 75 MG PO (10:43)
[2024-10-15] MEDS: NORVASC 5 MG PO (10:43)
[2024-10-15] MEDS: RISPERDAL 0.5 MG PO (10:43)
[2024-10-15] MEDS: LOW STRENGTH ASPIRIN 81 MG PO (10:43)
--- NOTE | 2024-10-15 11:46 | CM ---
Pt cleared for discharge to [facility] today. PT eval requested by CLARITA Angulo at the facility.
PT evaluation was completed; copy faxed to Francia Fonseca who was assisting with coordination of pt's return.
Pt's son aware that his mother will be returning to [facility] today.
Plan: Discharge to [facility] via ambulance today. Transport request faxed to [phone] to schedule.
[2024-10-15 11:59] VITALS: BP 148/66
--- NOTE | 2024-10-15 13:41 | W.DCSUMMARY ---
Discharge Summary
Discharge Data
Date of Admission: 10/13/24
Date of Discharge: 10/15/24
Total time spent discharging patient (in min): 34
-
Pending Results: No
Hospital Course
Discharging Physician :�Felix Caceres DO
Disposition :���� [facility] unit
Principal Discharge diagnosis :�
NSTEMI
Dementia
Chronic Discharge diagnosis :�
CAD s/p RCA PCI
Hypertension
Dyslipidemia
Advanced dementia
Hospital Course :�
84-year-old female that presented from her memory unit with chest pain that resolved shortly after arrival. Upon arrival had ECG that showed T wave flattening and ST depression that was progressive in the anterolateral leads and associated with
uptrending troponin that peaked at 0.630. Was started on IV heparin drip. Likely cause of her event was discontinuation of beta-lisa and aspirin while at the facility. Decision was made to treat her NSTEMI medically as she was felt to be poor
candidate for LHC and angiography. She was resumed on aspirin and her home carvedilol dose. She was started on high intensity statin and Plavix. Plan to proceed with DAPT with Plavix and aspirin for 6 months after discharge and plan to
discontinue aspirin/Plavix at that point, proceeding with MAPT thereafter. Patient had echocardiogram with preserved biventricular function and no significant valve abnormalities or wall motion abnormality. Should follow-up with cardiology within
2 to 3 weeks of discharge.
Consultants :
Healthcare Business Analyst: JU Olson MD
Important imaging findings :�
Transthoracic echocardiogram (10/13/2024)
CONCLUSIONS
1. Normal left ventricular size and systolic function without regional wall motion abnormalities.
2. Mild concentric left ventricular hypertrophy. Estimated left-ventricular ejection fraction is 55 to 60%.
3. Normal right ventricular size and systolic function.
4. Mitral annular calcification with thickened mitral valve leaflets and trace mitral regurgitation.
5. Thickened aortic valve with normal leaflet excursion. Mild to moderate aortic regurgitation.
6. No pericardial effusion.
7. Technically difficult study.
Procedure findings :� N/A
Follow-up :
Follow-up with PCP within 1 to 2 weeks of discharge from hospital
Schedule follow-up appointment with ac/dc rewinder within 2 weeks of discharge
Do not discontinue aspirin due to presence of coronary stent (will need lifelong therapy)
Discharge Plan
-
Patient Disposition: Penitentiary/SNF
Discharge Diagnosis/Procedures: NSTEMI
Condition: Fair
Diet: Low Fat
Activity: As tolerated
Driving Restrictions: As prior to admission
Bathing Restrictions: None
Referrals:
George Olson MD [Active, Cardiology] - 11/08/24 1:20 pm
Referral Note: You have an appointment to see Dr. Olson's physician child nutrition assistant, Kristen, at the [place] office on 11/08/2024 at 1:20 PM. Please call [phone] if you need to reschedule.
Bel Diaz CRNP [Family Provider, General]
Additional Discharge Medication Instructions: -Take aspirin 81 mg once a day forever, aspirin should never be stopped because you have had a coronary artery stent in the past
-Start taking Plavix (clopidogrel) 75 mg once a day and continue for the next 6 months (until 04/16/25) and then stop.
Prescriptions:
New
atorvastatin 40 mg Tablet
40 mg PO QPM Qty: 30 11RF
aspirin 81 mg Tablet,Chewable
81 mg PO DAILY Qty: 30 0RF
clopidogrel 75 mg Tablet
75 mg PO DAILY Qty: 30 5RF
amlodipine 5 mg Tablet
5 mg PO DAILY Qty: 30 11RF
hydrochlorothiazide 25 mg Tablet
25 mg PO DAILY Qty: 30 0RF
mirtazapine 15 mg Tablet
45 mg PO HS 30 Days Qty: 90 0RF
risperidone 0.5 mg Tablet
0.5 mg PO DAILY Qty: 30 0RF
risperidone 0.5 mg Tablet
0.5 mg PO HS Qty: 30 0RF
Continued
cefuroxime axetil 500 MG tablet
500 mg PO BID Qty: 14 0RF
carvedilol 3.125 MG tablet
3.125 mg PO BID Qty: 60 11RF
Discontinued
lisinopril 5 MG tablet
5 mg PO DAILY Qty: 90 3RF
Discharge Orders:
Discharge Patient (As Directed); Ordered 10/14/24
Ordered By: Felix Caceres
Discharge Date and Time
Print Language: ROMANIAN
--- NOTE | 2024-10-15 14:40 | PTCARENOTE ---
Report called to [facility]. Pt picked up by acute care.
== END 2024-10-15 14:45 | disposition home or self-care (01) | DRG 282 ==
LOC: 4 EAST ACU 00:55
PROVIDERS: Student in an Organized Health Care Education/Training Program; ADMITTING PHYSICIAN Internal Medicine; ATTENDING PHYSICIAN Internal Medicine; EMERGENCY PHYSICIAN Student in an Organized Health Care Education/Training Program; FAMILY PHYSICIAN Nurse Practitioner Gerontology; OTHER PHYSICIAN Internal Medicine Cardiovascular Disease
DX: I21.4 Non-ST elevation (NSTEMI) myocardial infarction (principal); Z66 Do not resuscitate; Z87.891 Personal history of nicotine dependence; I10 Essential (primary) hypertension; E78.5 Hyperlipidemia, unspecified; Z79.899 Other long term (current) drug therapy; Z87.440 Personal history of urinary (tract) infections
CPT/HCPCS: 80048; 80053; 80061; 83036; 84484; 85025; 85027; 85730; 93005; 93306; 96365; 97163; 97530; 99291

== ENCOUNTER → 2024-12-27 14:00 | Outpatient (REF) | payer MEDICARE, SELFPAY ==
[2024-12-27 21:12] LABS: Urine Character Cloudy (Clear)
[2024-12-27 21:34] LABS: Urine Red Blood Cell 0-2 /HPF (0-2); Urine White Cell 60-70 /HPF (0-5)
== END ==
LOC: OLABPG 14:00
PROVIDERS: ATTENDING PHYSICIAN Nurse Practitioner Gerontology
DX: N39.0 Urinary tract infection, site not specified (principal); R30.0 Dysuria
CPT/HCPCS: 81003; 81015; 87086